=== PATIENT | female | born 1955 | race Two or more races ===

== ENCOUNTER 2019-01-01 19:49 | Inpatient (IN) | payer MEDICAID ==
[~2019-01-01] VITALS: Ht 160 cm; Wt 58.7 kg
[2019-01-01 19:58] VITALS: Ht 160 cm; Wt 58.7 kg
[2019-01-01 20:35] LABS: BASOPHIL % 0.5 % (0-2); PLATELET COUNT 320 x10^3mcL (130-400)
[2019-01-01 20:36] LABS: RED CELL DISTRIBUTION WIDTH 18.6 % (11.5-14.5)
[2019-01-01 20:40] LABS: CALCIUM 8.9 mg/dL (8.5-10.1); CARBON DIOXIDE 27.2 mmol/L (21-32); CHLORIDE SERUM 105 mmol/L (98-107); CREATININE SERUM 0.8 mg/dL (0.6-1.0); GFR1 > 60 mL/min; GLUCOSE SERUM 104 mg/dL (74-106); POTASSIUM SERUM 3.8 mmol/L (3.5-5.1); SODIUM SERUM 142 mmol/L (136-145)
[2019-01-01 20:45] LABS: ALBUMIN 3.7 g/dL (3.4-5.0); ALKALINE PHOSPHATASE 110 U/L (46-116); ALT/SGPT 17 U/L (14-59); AST/SGOT 9 U/L (15-37); BILIRUBIN TOTAL 0.23 mg/dL (0.20-1.00); LIPASE 106 IU/L (73-393); TOTAL PROTEIN, SERUM 7.3 g/dL (6.4-8.2)
[2019-01-01 20:45] LABS: microscopic required? NO
[2019-01-01 20:51] LABS: UA SPECIFIC GRAVITY <=1.005 (1.005-1.035); urine erythrocyte NEGATIVE (NEGATIVE)
[2019-01-01] MEDS ORDERED: METFORMIN HCL1000 MG PO (22:44)
[2019-01-01] MEDS ORDERED: FERROUS SULFAT325 M2 PO (22:45)
[2019-01-02] VITALS (7 sets, daily range): BP systolic 158–186; BP diastolic 69–86
[2019-01-02 04:04] LABS: TOTAL IRON BINDING CAPACITY 325 ug/dL (250-450)
[2019-01-02 04:15] LABS: IRON 26 ug/dL (50-170)
[2019-01-02 04:18] LABS: RED BLOOD CELLS 4.47 M/mm3 (4.10-5.10)
[2019-01-02 06:35] LABS: CALCIUM 8.5 mg/dL (8.5-10.1); CARBON DIOXIDE 27.6 mmol/L (21-32); CHLORIDE SERUM 106 mmol/L (98-107); CREATININE SERUM 0.7 mg/dL (0.6-1.0); GFR1 > 60 mL/min; GLUCOSE SERUM 90 mg/dL (74-106); POTASSIUM SERUM 4.1 mmol/L (3.5-5.1); SODIUM SERUM 143 mmol/L (136-145)
[2019-01-02 06:42] LABS: BASOPHIL % 0.6 % (0-2); PLATELET COUNT 294 x10^3mcL (130-400); RED CELL DISTRIBUTION WIDTH 18.2 % (11.5-14.5)
[2019-01-02] MEDS ORDERED: APR10 PO (10:19)
[2019-01-02] MEDS ORDERED: ZES20 PO (10:21)
[2019-01-04] MEDS ORDERED: KEFLEX500 M1 PO (15:45)
== END 2019-01-02 15:08 | disposition home or self-care (01) | DRG 144 ==
LOC: ED 19:49 → DU 01-02 01:57
PROVIDERS: Emergency Medicine; ADMIT Internal Medicine
DX: J98.4 Other disorders of lung (principal); E11.8 Type 2 diabetes mellitus with unspecified complications; D50.9 Iron deficiency anemia, unspecified; I16.0 Hypertensive urgency; Z68.24 Body mass index [BMI] 24.0-24.9, adult
CPT/HCPCS: G0378; J2270; J2405; J2765; J7030; J7620; Q0092; Q9967